=== PATIENT | male | born 1990 | race Caucasian/White ===

== ENCOUNTER 2019-01-20 21:30 | Emergency (ER) | payer BC, SELFPAY ==
[2019-01-19 07:15] VITALS: BMI 36.6
[2019-01-20 21:31] VITALS: BP 156/91; PULSE 88; RESP 15; TEMP 36.7; O2SAT 98; BMI 36.5
--- NOTE | 2019-01-20 22:58 | ED.DCSUM_ITS ---
- ER Visit Summary Date of Service: 01/20/19 Chief Complaint: Poison deborah History of Present Illness: The patient is a 28 M who developed poison deborah rash yesterday on his arms and face after working in his yard the day before. He says now clinic yesterday for poison deborah. He was given a Kenalog shot and sta rted on p.o. prednisone 40 mg daily. Patient presents back saying symptoms are not improving. He has intermittently taken Benadryl. Physical Examination: Vital signs gross unremarkable. Patient sitting upright in bed no acute distress. Heart is regular rate and rhythm. Lung sounds are clear. Abdomen is soft nontender. Skin examination was scattered erythematous lesions on the bilateral arms consistent with contact dermatitis. No sign of secondary bacterial infection. He has mild facial erythema and skin appears to be somewhat thickened. Test Results: [] Emergency Department Course and Treatment: Patient is instructed to take Benadryl every 6 hours. We will rewrite his prednisone taper to start at 60 mg instead of 40. He is given an extra 40 mill grams of prednisone at this time. Treatment Plan: [] Disposition: Discharge Impression: Poison deborah This note was generated with [employer] dictation software. It may contain incorrect words, spelling, and punctuation that were not noted in review of the chart prior to signing ED Disposition - Plan for ED Patient: Disposition: Home or Assisted Living Instructions: ED Dermatitis Poison Deborah Prescriptions: Prednisone 10 mg PO UD #30 tablet Referrals: Rivera Rueda MD [Primary Care Provider] - 3-5 Days if not improving Additional Instructions: Prednisone taper: 6 tabs (60mg) daily x 3 days 5 tabs (50mg) daily x 3 days 4 tabs (40mg) daily x 3 days 3 tabs (30mg) daily x 3 days 2 tabs (20mg) daily x 3 days 1 tab (10mg) daily x 3 days
[2019-01-20] MEDS: predniSONE 20 MG Tablet 40 MG PO (23:11)
[2019-01-20 23:13] VITALS: PULSE 81; RESP 20; O2SAT 98
--- NOTE | 2019-01-20 23:13 | ED.RN ---
THIS NURSE REVIEWED D/C INSTRUCTIONS WITH PT AND VISITOR. PT VERBALIZED UNDERSTANDING OF INSTRUCTIONS. PT DENIES FURTHER NEEDS OR QUESTIONS AT THIS TIME. PT AMBULATES FROM ROOM ON OWN WITHOUT ASSISTANCE FROM STAFF
== END 2019-01-20 23:14 | disposition home or self-care (01) ==
PROVIDERS: Emergency Provider Emergency Medicine; Family Provider Family Medicine; PCP Family Medicine
DX: L23.7 Allergic contact dermatitis due to plants, except food (principal)
CPT/HCPCS: 99283

== ENCOUNTER → 2021-04-26 13:17 | Outpatient (CLI) | payer BC, SELFPAY | PROVIDERS: PCP Family Medicine; Visit Provider Physician Assistant | DX: U07.1 COVID-19 (principal) | CPT/HCPCS: 87635; U0005; U0003 ==

== ENCOUNTER 2021-08-18 15:00 | Outpatient (CLI) | payer BC, SELFPAY ==
--- NOTE | 2021-08-18 13:15 | VAS_PTH ---
PATIENT: SEVERO SARAH LOC: [facility] U#:[id number] AGE/SX: 30/M ROOM: RE08/18/[address]: Dr. Kennedy Francisco MD : 1990 BED: DIS: 08/18/2021 SPEC #: [id number] RECD: 08/18/21 14:56 STATUS: RIO REMiguel #: [id number] CRUZ: 08/18/21 13:[address]: Kennedy Francisco DEPT: SURGICAL PATHOLOGY RECD BY: Geno Agee ENTERED: 08/21/21 13:08 SP TYPE: VAS OTHR DR: Dr. Rivera Rueda MD Tissues: A - Vas deferens, NOS B - Vas deferens, NOS Procedures: Surgery Specimen Level II HEADER OPERATION: Bilateral partial vasectomy PRE-OP DIAGNOSIS: Sterilization TISSUE SUBMITTED: A ? Left vas deferens, B ? Right vas deferens MICROSCOPIC DIAGNOSIS A. Left vas deferens, partial vasectomy: Completely transected segment of vas deferens, no pathologic diagnosis. B. Right vas deferens, partial vasectomy: Completely transected segment of vas deferens, no pathologic diagnosis. MENDOZA:rosas 08/22/2021 MICROSCOPIC DESCRIPTION Slides are reviewed. GROSS DESCRIPTION A - Received is one container designated left vas deferens. The specimen consists of a tubular segment of merrill soft tissue measuring 0.7 cm in length and 0.4 cm in diameter. The specimen is sectioned and submitted entirely in one cassette. B - Received is one container designated right vas deferens. The specimen consists of a tubular segment of merrill soft tissue measuring 0.6 cm in length and 0.4 cm in diameter. The specimen is sectioned and submitted entirely in one cassette. / MENDOZA:rosas 08/21/2021 TC:4 [facility]: [id number] x2
== END 2021-08-18 23:59 | disposition short-term general hospital (02) ==
PROVIDERS: PCP Family Medicine; Visit Provider Surgery
DX: Z30.2 Encounter for sterilization (principal)
CPT/HCPCS: 88302

== ENCOUNTER 2021-09-21 11:08 | Outpatient (CLI) | payer BC, SELFPAY ==
[2021-09-21 15:21] LABS: Semen Analysis Post Vas REVIEWED
== END 2021-09-21 23:59 | disposition home or self-care (01) ==
LOC: LABSPEC 11:09
PROVIDERS: Visit Provider Surgery
DX: Z30.2 Encounter for sterilization (principal)
CPT/HCPCS: 89321

== ENCOUNTER 2021-10-17 10:38 | Outpatient (CLI) | payer BC, SELFPAY ==
[2021-10-18 14:13] LABS: Semen Analysis Post Vas ABSENT
== END 2021-10-17 23:59 | disposition home or self-care (01) ==
LOC: LABSPEC 10:40
PROVIDERS: Visit Provider Surgery
DX: Z30.2 Encounter for sterilization (principal)
CPT/HCPCS: 89321

== ENCOUNTER 2021-10-25 16:48 | Emergency (ER) | payer BC, SELFPAY ==
[2021-10-25 16:49] VITALS: BP 149/95; PULSE 98; RESP 16; TEMP 36.1; O2SAT 100; BMI 34.7
--- NOTE | 2021-10-25 17:15 | US_ITS ---
STUDY: SCROTUM ULTRASOUND REASON FOR EXAM: Male, 31 years old. right testic pain TECHNIQUE: Ultrasound evaluation of the scrotum was performed with color Doppler and static winter-scale imaging. COMPARISON: None. FINDINGS: RIGHT TESTICLE INTRATESTICULAR: There is a normal size of the right testicle. The right testicle measures 4.9 x 3.6 cm. There is a homogenous echotexture. There is normal arterial and normal venous vascularity. There is no demonstrated right testicular mass or cyst. EXTRATESTICULAR: The epididymis is normal in size. The epididymis head measures 1.3 x 1.2 cm. There is normal vascularity of the epididymis. There is a well-defined cystic structure within the epididymis, without internal echoes, consistent with an epididymal cyst. This measures 5 x 6 monitor. There is a moderate size hydrocele. Hydroceles debris-filled. There is no demonstrated varicocele. There is no demonstrated extratesticular mass or cyst. LEFT TESTICLE INTRATESTICULAR: There is a normal size of the left testicle. The left testicle measures 5.1 x 3 cm. There is a homogenous echotexture. There is normal arterial and normal venous vascularity. There is no demonstrated left testicular mass or cyst. EXTRATESTICULAR: The epididymis is normal in size. The epididymis head measures 1.1 x 0.7 cm. There is normal vascularity of the epididymis. There is no demonstrated epididymal cystic structure. There is no demonstrated hydrocele. There is no demonstrated varicocele. There is no demonstrated extratesticular mass or cyst. US/Testicular with Arterial Flow IMPRESSION: Small left hydrocele. Moderate right debris-filled hydrocele. Small right epididymal cyst. There are no acute findings of the bilateral testicles without evidence for torsion. Electronically Signed: Bob Gaston MD at 19:07 EDT ,
--- NOTE | 2021-10-25 17:20 | CT_ITS ---
STUDY: CT Abdomen And Pelvis W/O Contrast Injection 10/25/2021 7:20 PM REASON FOR EXAM: Male, 31 years old. ABDOMINAL PAIN right flank pain TECHNIQUE: Transaxial images were obtained without oral contrast, and without intravenous contrast. Individualized dose optimization techniques were used for this CT. COMPARISON: None. FINDINGS: The visualized lung bases are unremarkable. The visualized portions of the heart are within normal limits. Normal liver. Normal gallbladder and extrahepatic biliary system. Normal spleen. Normal pancreas. Normal bilateral adrenal glands. No acute findings of the right kidney. No acute findings of the left kidney. Normal visualized stomach. Normal small intestine. Stool throughout the colon. The appendix is visualized and appears normal. There are no acute findings of the abdominal aorta. Normal inferior vena cava. Subcentimeter mesenteric lymph nodes. Normal urinary bladder. Normal visualized prostate gland.Bilateral testicular hydroceles. There is an umbilical hernia containing fat. Normal osseous structures. IMPRESSION: (NOT LISTED IN ORDER OF SIGNIFICANCE) Bilateral testicular hydroceles. Other findings as above. Electronically Signed: Bob Gaston MD at 19:22 EDT , CT/Abdomen/Pelvis without Cont
--- NOTE | 2021-10-25 17:20 | EX.ED.DYSGE1 ---
HPI History of Present Illness Chief Complaint: Flank Pain Informant: patient Onset/Context/Timing Onset: Hours (6-7) Context: Sudden Onset Timing: Continuous Quality: Ache Location: Low back, right testicle Current Severity: Severe Maximum Severity: Severe Worsened by: Palpating testicle Relieved by: Nothing. Tried ibuprofen. Associated Symptoms Associated Symptoms: No nausea, vomiting, urinary symptoms, fever Narrative Narrative: Patient with sudden onset pain that has been colicky in his right low back, lumbosacral area without any injury or pain with movement, followed by discomfort going into his flank and right testicle. He states the testicle pain did not start immediately, and it hurts a lot worse to push on or manipulate. [facility] Medical History (Updated 10/25/21 @ 20:[address] Harry Magallanes MD) Encounter for screening for COVID-19 Shoulder pain Home Medications acetaminophen-codeine 1 tab PO Q4H PRN #10 tab 10/25/21 [Rx Last Taken Unknown] aspirin [Baby Aspirin] 81 mg PO DAILY 10/25/21 [History Last Taken Unknown] doxycycline monohydrate 100 mg PO BID #14 capsule 10/25/21 [Rx Last Taken Unknown] Allergy/AdvReac Type Severity Reaction Status Date / Time poison mirna extract Allergy Unknown rash Verified 10/25/21 16:49 Family History Father Arthritis High cholesterol Mother Hypertension Grandfather Heart disease Surgical History History of shoulder surgery History of vasectomy (~08/2021) Hx of LASIK [place] teeth extracted Social History Smoking Status: Never smoker alcohol intake: current details: socially substance use type: does not use ROS ROS ED Constitutional Constitutional ED: Denies chills or fever(s) Eyes Eyes: Denies change in vision or diplopia ENT ENT ED: Denies rhinorrhea or sore throat Cardiovascular Cardiovascular: Denies chest pain or palpitations Respiratory/Chest Respiratory/Chest: Denies cough or dyspnea Gastrointestinal Gastrointestinal: Denies diarrhea, nausea or vomiting Genitourinary Genitourinary ED: Reports as per HPI, flank pain and scrotal pain; Denies dysuria, hematuria or penile discharge Musculoskeletal Musculoskeletal: Reports back pain; Denies neck pain Integumentary Denies abscess or rash Neurologic Neurologic: Denies headache(s), paresthesias or weakness Psychiatric Psychiatric: Denies anxiety or suicidal thoughts EXAM Physical Exam Const Vital Signs: 10/25/21 16:49 10/25/21 20:30 Temperature 97.0 F L Temperature Source Temporal Pulse Rate 98 90 Respiratory Rate 16 Blood Pressure 149/95 H 138/75 H Blood Pressure Mean 113 Pulse Ox 100 Oxygen Delivery Method Room Air Positive well nourished and well developed General Appearance ED: well developed and NAD HEENT Reports moist mucous membranes normocephalic and atraumatic Eyes PERRL and EOMs intact bilaterally Neck full ROM and supple Resp normal respiratory effort and clear to auscultation bilaterally Cardio regular rate, regular rhythm and no murmurs GI non-tender and non-distended Auscultation: normoactive bowel sounds Palpation: soft no CVA tenderness Narrative: Normal penis. Right testicle very tender, mild swelling, slightly drawn off without cremasteric reflex. No guarding or rebound. No blue dot sign of erythema. No palpable mass. No hernia examined while standing. Back/Spine no CVA tenderness General Back: other FROM Lumbar Spine / Lower Back: Negative for pain with ROM, lumbar spinal tenderness or paraspinal muscle spasm Extremity normal to inspection General Extremety ED: Negative for edema, pulses abnormal or tenderness General Extremity: Negative for edema or pulses abnormal Neuro oriented x3, CN's II-XII intact bilaterally and no sensory deficits noted Sensorium / Orientation: awake and alert Motor Exam: strength 5/5 throughout Skin no rashes or lesions noted and no wounds MDM MDM MDM Narrative Medical decision making narrative: Patient with an unusual constellation of symptoms, a tender painful right testicle but also pain into the flank and low back suggesting a stone. For these reasons not only did I do blood work and a urinalysis but also simultaneous ultrasound of the scrotum and a CT of the abdomen/pelvis. All in all it is fairly unremarkable showing bilateral hydroceles, the one on the right has debris in it, there is no increased vascularity in the epididymal, no abnormal or low vascularity/flow in the testicles, and no sign of a stone or any other acute abnormality in the abdomen/pelvis. I discussed with Dr. Khan and he states given with the exam, he would advise treating the patient for epididymitis and states he would be happy to follow-up with patient as an outpatient if needed. Discussed with the patient, he was given prescriptions for something for pain as well as doxycycline, he is and monogamous and I did doubt GC and chlamydia here. He is comfortable with that plan. Lab Data Attestation: I reviewed the patient's lab results. Labs: Laboratory Results - last 24 hr 10/25/21 10/25/21 10/25/21 17:24 17:25 17:25 WBC 14.7 H RBC 4.97 Hgb 15.1 Hct 42.9 MCV 86.3 MCH 30.4 MCHC 35.2 RDW Std Deviation 39.3 RDW Coeff of German 12.4 Plt Count 328 MPV 8.9 Immature Gran % (Auto) 0.400 Neut % (Auto) 80.4 H Lymph % (Auto) 10.8 L [place] % (Auto) 7.6 Eos % (Auto) 0.5 Baso % (Auto) 0.3 Absolute Neuts (auto) 11.8 H Absolute Lymphs (auto) 1.59 Nucleated RBC % 0 Sodium 138 Potassium 4.1 Chloride 106 Carbon Dioxide 27.0 Anion Gap 5 BUN 15 Creatinine 1.12 Estim Creat Clear Calc 115.17 Est GFR (MDRD) Af Amer 97 Est GFR (MDRD) Non-Af 80 BUN/Creatinine Ratio 13.4 Glucose 113 H Calcium 9.1 Urine Color Yellow Urine Clarity Clear Urine pH 8.0 Ur Specific [place] 1.015 Urine Protein Negative Urine Glucose (UA) Normal Urine Ketones Negative Urine Occult Blood Negative Urine Nitrite Negative Urine Bilirubin Negative Urine Urobilinogen Normal Ur Leukocyte Esterase Negative Urine RBC 0 SEEN Urine WBC 0 SEEN Ur Squamous Epith Cells 0 SEEN Urine Bacteria 0 SEEN Urine Mucus 0 SEEN Radiography Diagnostic Testing: Clinical Impression(s) from Imaging Studies Testicular Ultrasound 10/25/21 17:15 IMPRESSION: Small left hydrocele. Moderate right debris-filled hydrocele. Small right epididymal cyst. There are no acute findings of the bilateral testicles without evidence for torsion. Electronically Signed: Bob Gaston MD at 19:07 EDT Reading Location ID and State: [facility] / [place] , Service support , Abdomen/Pelvis CT 10/25/21 17:20 Discharge Plan Triage Chief Complaint: Flank Pain Other Complaint: Back ED Provider: Harry Magallanes Dx/Rx/DC Orders Clinical Impression: Epididymitis, right, Hydrocele, bilateral, Acute right flank pain Instructions: ED Epididymitis, ED Hydrocele, Type Not Specified Prescriptions: New doxycycline monohydrate 100 MG capsule 100 mg PO BID Qty: 14 RF: 0 acetaminophen-codeine 300-30 mg tablet 1 tab PO Q4H PRN (Reason: pain) Qty: 10 RF: 0 No Action aspirin [Baby Aspirin] 81 mg Tablet,Chewable 81 mg PO DAILY RF: 0 Primary Care Provider: Rivera Rueda Referrals: Raad Khan MD [STAFF PHYSICIAN] - 1 Week if not improving Rivera Rueda MD [Primary Care Provider] - Disposition Disposition: Home, Self Care Discharge Date/Time: 10/25/21 20:31
[2021-10-25] MEDS: HYDROcodone Bitartrate/Apap 5/325 Tablet PO (17:26)
[2021-10-25] MEDS: Ketorolac 30 MG/ML Syringe IV (17:30)
[2021-10-25 17:36] LABS: Bacteria 0 SEEN /hpf (None Seen); Mucous, Urine 0 SEEN /hpf (<or=2+); Red Blood Cells-Urine 0 SEEN /hpf (0-5); Squamous Epithelial Cells - UA 0 SEEN /hpf (0-5); White Blood Cells 0 SEEN /hpf (0-5)
[2021-10-25 17:40] LABS: Color, Urine Yellow (Yellow); Glucose, Dipstick Normal (Normal); Ketone-Dipstick Negative (Negative); Leukocyte Esterase-Dipstick Negative /ul (Negative); Nitrite-Dipstick Negative (Negative); Occult Blood-Urine Negative /ul (Negative); Protein-Dipstick Negative (Negative); Specific Gravity, Urine 1.015 (1.002-1.030); Urine Bilirubin Dipstick Negative (Negative); Urine Clarity Clear (Clear); Urine Urobilinogen Normal (Normal)
[2021-10-25 17:42] LABS: Absolute Lymphocyte Count 1.59 X10^3/uL (0.83-4.51); Absolute Neutrophil Count 11.8 X10^3/uL (2.0-7.7); Basophil# 0.05 X10^3/uL; Basophil% 0.3 % (0-1); Eosinophil# 0.08 X10^3/uL; Eosinophils% 0.5 % (0-5); Hematocrit 42.9 % (40-54); Hemoglobin 15.1 g/dL (13.0-16.5); Lymphocyte # 1.59 X10^3/ul (0.83-4.51); Lymphocyte % 10.8 % (19-41); Mean Corp Hgb Conc 35.2 g/dL (32-36); Mean Corpuscular Hgb 30.4 pg (27.0-32.0); Mean Corpuscular Volume 86.3 fL (80-94); Mean Platelet Vol. 8.9 fl (6.2-12.0); Monocyte# 1.12 X10^3/uL; Monocyte% 7.6 % (0-10); NRBC Flagged by Analyzer 0 % (0-5); Neutrophil # 11.78 X10^3/uL (2.7-7.7); Neutrophil % 80.4 % (47-70); Platelet Count 328 K/mm3 (150-450); RBC Distribution Width CV 12.4 % (11.6-14.6); RBC Distribution Width SD 39.3 fl (35.1-43.9); Red Blood Count 4.97 M/mm3 (4.6-6.2); White Blood Count 14.7 K/mm3 (4.4-11.0)
[2021-10-25 18:02] LABS: Anion Gap 5 (5-15); BUN 15 mg/dL (7-18); BUN/Creat Ratio 13.4 RATIO (10-20); Calcium,Total 9.1 mg/dL (8.5-10.1); Chloride 106 mmol/L (98-107); Creatinine, Serum 1.12 mg/dL (0.70-1.30); EST Glomerular Filtration Rate 80 mL/min (>60); Est Glom Filt Rate - Afr Amer 97 mL/min (>60); Estimated Creatinine Clearance 115.17 ml/min; Glucose 113 mg/dL (74-106); Potassium 4.1 mmol/L (3.5-5.1); Sodium Level 138 mmol/L (136-145)
[2021-10-25] MEDS: Doxycycline 100 MG CAPSULE PO (20:26)
[2021-10-25 20:30] VITALS: BP 138/75; PULSE 90
== END 2021-10-25 20:31 | disposition home or self-care (01) ==
PROVIDERS: Emergency Provider Emergency Medicine; PCP Family Medicine; Visit Provider Emergency Medicine
DX: N45.1 Epididymitis (principal); N43.3 Hydrocele, unspecified; N50.811 Right testicular pain; Z79.82 Long term (current) use of aspirin
CPT/HCPCS: 74176; 76870; 80048; 81001; 85025; 93976; 96374; 99284; A4216

== ENCOUNTER → 2024-06-08 | Outpatient (CLI) | payer OTHER, SELFPAY ==
[2024-06-08 17:43] LABS: Follicle Stimulating Hormone 3.9 mIU/mL; Luteinizing Hormone 4.8 mIU/mL
--- OUTSIDE RECORDS SUMMARY | 2024-06-08 19:58 | XMS RPT_ITS | CCD ---
Author Organization [facility] Care Team Providers Care Highballer Name Role Phone Lilia Rueda Unavailable Unavailable Stencel, Lilia Unavailable Unavailable Wood, Lisa Rees Unavailable Unavailable Stencel, Lilia Unavailable Unavailable Stencel, Lilia Unavailable Unavailable Stencel, Lilia Unavailable Unavailable Stencel, Lilia Unavailable Unavailable Stencel, Lilia Unavailable Unavailable Stencel, Lilia Unavailable Unavailable Stencel, Lilia Unavailable Unavailable Stencel, Lilia Unavailable Robert Elmore MD MICHAEL DAVID Referring Briana RUEDA, MD LILIA RASMUSSEN Attending MD LILIA Newman Primary Care Briana Elmore, Ms. Robert Angeles Attending Briana Rueda, Dr. Lilia Rasmussen Primary Care Lilia Nation MD Primary Care Provider [phone] LILIA RUEDA Attending LILIA Little Primary Care LILIA Little Primary Care Unavailable Allergies Allergy Classification Reported Allergen(s) Allergy Type Date of Onset Reaction(s) Facility (1 source) No Known Medication Allergies; Translations: [No Known Medication Allergies] Propensity to adverse reactions to drug (disorder) [facility] Repository Medications Current Medications Medication Drug Class(es) Dates Sig (Normalized) Sig (Original) azithromycin 250 mg oral tablet (1 source) Macrolide Antimicrobial Start: 10-10-2022 take 2 tablets by mouth once, then take 1 tablet by mouth once daily azithromycin 250 mg oral tablet ; Take 2 tabs (500mg) x 1 days, then 1 tab (250mg) once daily x 4 days Quantity: 6 Refills: 0 Ordered: 10-Oct-2022 Robert Elmore Start: 10-Oct-2022 Generic Substitution Allowed Comments: Do not take dairy products, antacids, or iron preparations within one hour of this medication.Finish all this medication unless otherwise directed by prescriber. Comment on above: Do not take dairy pr oducts, antacids, or iron preparations within one hour of this medication.Finish all this medication unless otherwise directed by prescriber. 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 Other upper respiratory disease (2 sources) Pain in throat 10-10-2022 Episodic Comment on above: SORE THROAT Other upper respiratory infections (2 sources) Acute pharyngitis, unspecified; Translations: [Acute pharyngitis, unspecified] Onset: 10-10-2022 Episodic Unclassified (1 source) Contact with and (suspected) exposure to COVID-19; Translations: [Contact with and (suspected) exposure to COVID-19] Onset: 10-10-2022 Results Test Name Value Interpretation Reference Range Facility CBC panel Auto (Bld)on 05-12 Erythrocyte distribution width (RBC) [Ratio] 12.5 % 11.5 - 14.5 % [facility] Hematocrit (Bld) [Volume fraction] 43.0 % 41.0 - 52.0 % [facility] Hemoglobin (Bld) [Mass/Vol] 14.8 g/dL 13.5 - 17.5 g/dL [facility] Interpretation and review of laboratory results Normal [facility] MCH (RBC) [Entitic mass] 30.4 pg 26.0 - 34.0 pg [facility] MCHC (RBC) [Mass/Vol] 34.4 g/dL 32.0 - 36.0 g/dL [facility] MCV (RBC) [Entitic vol] 88 fL 80 - 100 fL [facility] Nucleated RBC/100 WBC (Bld) [Ratio] 0.0 % [facility] Platelets (Bld) [#/Vol] 280 10*3/uL [facility] RBC (Bld) [#/Vol] 4.87 10*6/uL [facility] WBC (Bld) [#/Vol] 5.4 10*3/uL [facility] Erythrocyte distribution width (RBC) [Ratio] 12.5 % Normal 11.5-14.5 [facility] Comment on above: Performed By: #### 5 8410-2 #### MANISH MARTIN ([id number]) [facility] ([facility]) [address] [place] [address] 88586 Hematocrit (Bld) [Volume fraction] 43.0 % Normal 41.0-52.0 [facility] Comment on above: Performed By: #### 5 8410-2 #### MANISH MARTIN ([id number]) [facility] ([facility]) [address] [place] [address] 47624 Hemoglobin (Bld) [Mass/Vol] 14.8 g/dL Normal 13.5-17.5 [facility] Comment on above: Performed By: #### 5 8410-2 #### MANISH MARTIN ([id number]) [facility] ([facility]) [address] [place] [address] 02423 MCH (RBC) [Entitic mass] 30.4 pg Normal 26.0-34.0 [facility] Comment on above: Performed By: #### 5 8410-2 #### MANISH MARTIN ([id number]) [facility] ([facility]) [address] [place] [address] 86744 MCHC (RBC) [Mass/Vol] 34.4 g/dL Normal 32.0-36.0 [facility] Comment on above: Performed By: #### 5 8410-2 #### MANISH MARTIN ([id number]) [facility] ([facility]) [address] [place] [address] 76182 MCV (RBC) [Entitic vol] 88 fL Normal 80-100 [facility] Comment on above: Performed By: #### 5 8410-2 #### MANISH MARTIN ([id number]) [facility] ([facility]) [address] [place] [address] 24568 Nucleated RBC/100 WBC (Bld) [Ratio] 0.0 /100 WBCs Normal 0.0-0.0 [facility] Comment on above: Performed By: #### 5 8410-2 #### MANISH MARTIN ([id number]) [facility] ([facility]) [facility] [place] [address] Platelets (Bld) [#/Vol] 280 x10*3/uL Normal 150-450 [facility] Comment on above: Performed By: #### 5 8410-2 #### MANISH MARTIN ([id number]) [facility] ([facility]) [address] [place] [address] 76889 RBC (Bld) [#/Vol] 4.87 x10*6/uL Normal 4.50-5.90 [facility] Comment on above: Performed By: #### 5 8410-2 #### MANISH MARTIN ([id number]) [facility] ([facility]) [address] [place] [address] 23242 WBC (Bld) [#/Vol] 5.4 x10*3/uL Normal 4.4-11.[address] [facility] Comment on above: Performed By: #### 5 8410-2 #### MANISH MARTIN ([id number]) [facility] ([facility]) [address] [place] [address] 16582 Comprehensive metabolic 2000 panelon 05-12-2024 Albumin BCP dye [Mass/Vol] 4.6 g/dL 3.4 - 5.0 g/dL [facility] ALP [Catalytic activity/Vol] 63 U/L 33 - 120 U/L [facility] ALT With P-5'-P [Catalytic activity/Vol] 46 U/L 10 - 52 U/L [facility] Comment on above: Patients treated wit h Sulfasalazine may generate falsely decreased results for ALT. Anion gap [Moles/Vol] 11 mmol/L 10 - 20 mmol/L [facility] AST With P-5'-P [Catalytic activity/Vol] 21 U/L 9 - 39 U/L [facility] Bilirubin [Mass/Vol] 0.5 mg/dL 0.0 - 1.2 mg/dL [facility] Calcium [Mass/Vol] 9.1 mg/dL 8.6 - 10.3 mg/dL [facility] Chloride [Moles/Vol] 105 mmol/L 98 - 107 mmol/L [facility] CO2 [Moles/Vol] 25 mmol/L 21 - 32 mmol/L [facility] Creatinine [Mass/Vol] 0.85 mg/dL 0.50 - 1.30 mg/dL [facility] eGFR - PINF [facility] Comment on above: Calculations of clarence mated GFR are performed using the 2020 CKD-EPI Study Refit equation without the race variable for the IDMS-Traceable creatinine methods. https://jasn.asnjournals.org/content/early//ASN.1411525931 Glucose [Mass/Vol] 89 mg/dL 74 - 99 mg/dL [facility] Interpretation and review of laboratory results Normal [facility] Potassium [Moles/Vol] 4.3 mmol/L 3.5 - 5.3 mmol/L [facility] Protein [Mass/Vol] 7.3 g/dL 6.4 - 8.2 g/dL [facility] Sodium [Moles/Vol] 137 mmol/L 136 - 145 mmol/L [facility] Urea nitrogen [Mass/Vol] 13 mg/dL 6 - 23 mg/dL [facility] Albumin BCP dye [Mass/Vol] 4.6 g/dL Normal 3.4-5.0 [facility] Comment on above: Performed By: #### 2 4323-8 #### MANISH MRATIN ([id number]) [facility] ([facility]) [address] [place] [address] 24221 ALP [Catalytic activity/Vol] 63 U/L Normal 33-120 [facility] Comment on above: Performed By: #### 2 4323-8 #### MANISH MARTIN ([id number]) [facility] ([facility]) [address] [place] [address] 04914 ALT With P-5'-P [Catalytic activity/Vol] 46 U/L Normal 10-52 [facility] Comment on above: Result Comment: Isa ents treated with Sulfasalazine may generate falsely decreased results for ALT. Performed By: #### 2 4323-8 #### MANISH MARTIN ([id number]) [facility] ([facility]) [address] [place] [address] 57720 Anion gap [Moles/Vol] 11 mmol/L Normal 10-20 [facility] Comment on above: Performed By: #### 2 4323-8 #### MANISH MARTIN ([id number]) [facility] ([facility]) [address] [place] [address] 57580 AST With P-5'-P [Catalytic activity/Vol] 21 U/L Normal 9-39 [facility] Comment on above: Performed By: #### 2 4323-8 #### MANISH MARTIN ([id number]) [facility] ([facility]) [address] [place] [address] 28824 Bilirubin [Mass/Vol] 0.5 mg/dL Normal 0.0-1.2 [facility] Comment on above: Performed By: #### 2 4323-8 #### MANISH MARTIN ([id number]) [facility] ([facility]) [address] [place] [address] 23732 Calcium [Mass/Vol] 9.1 mg/dL Normal 8.6-10.3 [facility] Comment on above: Performed By: #### 2 4323-8 #### MANISH MARTIN ([id number]) [facility] ([facility]) [address] [place] [address] 24458 Chloride [Moles/Vol] 105 mmol/L Normal 98-107 [facility] Comment on above: Performed By: #### 2 4323-8 #### MANISH MARTIN ([id number]) [facility] ([facility]) [address] [place] [address] 97640 CO2 [Moles/Vol] 25 mmol/L Normal 21-32 [facility] Comment on above: Performed By: #### 2 4323-8 #### MANISH MARTIN ([id number]) [facility] ([facility]) [address] [place] [address] 14896 Creatinine [Mass/Vol] 0.85 mg/dL Normal 0.50-1.30 [facility] Comment on above: Performed By: #### 2 4323-8 #### MANISH MARTIN ([id number]) [facility] ([facility]) [address] [place] [address] 59639 GFR/1.73 sq M.predicted MDRD (S/P/Bld) [Vol rate/Area] mL/min/{1.73_m2} Normal >60 [facility] Comment on above: Result Comment: Calc ulations of estimated GFR are performed using the 2020 CKD-EPI Study Refit equation without the race variable for the IDMS-Traceable creatinine methods. https://jasn.asnjournals.org/content/early/ASN.2176344963 Performed By: #### 2 432-8 #### MANISH MARTIN ([id number]) [facility] ([facility]) [address] [place] [address] 89232 Glucose [Mass/Vol] 89 mg/dL Normal 74-99 [facility] Comment on above: Performed By: #### 2 432-8 #### MANISH MARTIN ([id number]) [facility] ([facility]) [address] [place] [address] 11249 Potassium [Moles/Vol] 4.3 mmol/L Normal 3.5-5.3 [facility] Comment on above: Performed By: #### 2 4323-8 #### MANISH MARTIN ([id number]) [facility] ([facility]) [address] [place] [address] 03461 Protein [Mass/Vol] 7.3 g/dL Normal 6.4-8.2 [facility] Comment on above: Performed By: #### 2 4323-8 #### MANISH MARTIN ([id number]) [facility] ([facility]) [address] [place] [address] 68358 Sodium [Moles/Vol] 137 mmol/L Normal 136-145 [facility] Comment on above: Performed By: #### 2 4323-8 #### MANISH MARTIN ([id number]) [facility] ([facility]) [address] [place] [address] Urea nitrogen [Mass/Vol] 13 mg/dL Normal 6-23 [facility] Comment on above: Performed By: #### 2 4323-8 #### HAMMOND MARIO ([id number]) [facility] ([facility]) [address] [place] [id number] Lipid 1996 panelon 4 Cholesterol [Mass/Vol] 175 mg/dL 0 - 199 mg/dL [facility] Comment on above: Age Desirable Borderline High High 0-19 Y 0 - 169 170 - 199 >/= 200 20-24 Y 0 - 189 190 - 224 >/= 225 >24 Y 0 - 199 200 - 239 >/= 240 All ranges are based on fasting samples. Specific therapeutic targets will vary based on patient-specific cardiac risk. Pediatric guidelines reference:Pediatrics 2011, 128(S5).Adult guidelines reference: NCEP ATPIII Guidelines,MEAGHAN 2001, 258:2486-97 Venipuncture immediately after or during the administration of Metamizole may lead to falsely low results. Testing should be performed immediately prior to Metamizole dosing. Cholesterol in HDL [Mass/Vol] 54.0 mg/dL [facility] Comment on above: Age Very Low Low Normal High 0-19 Y < 35 < 40 40-45 ---- 20-24 Y ---- < 40 >45 ---- >24 Y ---- < 40 40-60 >60 Cholesterol in LDL [Mass/Vol] 100 mg/dL High NINF - 99 mg/dL [facility] Comment on above: Near Borderline AGE Desirable Optimal High High Very High 0-19 Y 0 - 109 --- 110-129 >/= 130 ---- 20-24 Y 0 - 119 --- 120-159 >/= 160 ---- >24 Y 0 - 99 100-129 130-159 160-189 >/=190 Cholesterol in VLDL [Mass/Vol] 21 mg/dL 0 - 40 mg/dL [facility] Cholesterol.total /Cholesterol in HDL [Mass ratio] 3.2 {ratio} [facility] Comment on above: Ref Values Desirable < 3.4 High Risk > 5.0 Interpretation and review of laboratory results Abnormal [facility] Non HDL Cholesterol 121 mg/dL 0 - 149 mg/dL [facility] Comment on above: Age Desirable Borderline High High Very High 0-19 Y 0 - 119 120 - 144 >/= 145 >/= 160 20-24 Y 0 - 149 150 - 189 >/= 190 ---- >24 Y 30 mg/dL above LDL Cholesterol goal Triglyceride [Mass/Vol] 106 mg/dL 0 - 149 mg/dL [facility] Comment on above: Age Desirable Borderline High High Very High 0 D-90 D 19 - 174 ---- ---- ---- 91 D- 9 Y 0 - 74 75 - 99 >/= 100 ---- 10-19 Y 0 - 89 90 - 129 >/= 130 ---- 20-24 Y 0 - 114 115 - 149 >/= 150 ---- >24 Y 0 - 149 150 - 199 200- 499 >/= 500 Venipuncture immediately after or during the administration of Metamizole may lead to falsely low results. Testing should be performed immediately prior to Metamizole dosing. Cholesterol [Mass/Vol] 175 mg/dL Normal 0-199 [facility] Comment on above: Result Comment: Age Desirable Borderline High High 0-19 Y 0 - 169 170 - 199 >/= 200 20-24 Y 0 - 189 190 - 224 >/= 225 >24 Y 0 - 199 200 - 239 >/= 240 All ranges are based on fasting samples. Specific therapeutic targets will vary based on patient-specific cardiac risk. Pediatric guidelines reference:Pediatrics 2011, 128(S5).Adult guidelines reference: NCEP ATPIII Guidelines,MEAGHAN 2001, 258:2486-97 Venipuncture immediately after or during the administration of Metamizole may lead to falsely low results. Testing should be performed immediately prior to Metamizole dosing. Performed By: #### 2 4331-1 #### HAMMOND MARIO ([id number]) [facility] ([facility]) [address] [place] [address] Cholesterol in HDL [Mass/Vol] 54.0 mg/dL Normal [facility] Comment on above: Result Comment: Age Very Low Low Normal High 0-19 Y < 35 < 40 40-45 ---- 20-24 Y ---- < 40 >45 ---- >24 Y ---- < 40 40-60 >60 Performed By: #### 2 4331-1 #### MANISH MARTIN ([id number]) [facility] ([facility]) [address] [place] [address] 58348 Cholesterol in LDL [Mass/Vol] 100 mg/dL High <=99 [facility] Comment on above: Result Comment: Near Borderline AGE Desirable Optimal High High Very High 0-19 Y 0 - 109 --- 110-129 >/= 130 ---- 20-24 Y 0 - 119 --- 120-159 >/= 160 ---- >24 Y 0 - 99 100-129 130-159 160-189 >/=190 Performed By: #### 2 4331-1 #### MANISH MARTIN ([id number]) [facility] ([facility]) [address] [place] [address] 99433 Cholesterol in VLDL [Mass/Vol] 21 mg/dL Normal 0-40 [facility] Comment on above: Performed By: #### 2 4331-1 #### MANISH MARTIN ([id number]) [facility] ([facility]) [address] [place] [address] 29115 CHOLESTEROL/HDL RATIO 3.2 Normal [facility] Comment on above: Result Comment: Ref Values Desirable < 3.4 High Risk > 5.0 Performed By: #### 2 4331-1 #### MANISH MARTIN ([id number]) [facility] ([facility]) [address] [place] [address] 86887 NON HDL CHOLESTEROL 121 mg/dL Normal 0-149 [facility] Comment on above: Result Comment: Age Desirable Borderline High High Very High 0-19 Y 0 - 119 120 - 144 >/= 145 >/= 160 20-24 Y 0 - 149 150 - 189 >/= 190 ---- >24 Y 30 mg/dL above LDL Cholesterol goal Performed By: #### 2 4331-1 #### MANISH MARTIN ([id number]) [facility] ([facility]) [facility] [place] [address] Triglyceride [Mass/Vol] 106 mg/dL Normal 0-149 [facility] Comment on above: Result Comment: Age Desirable Borderline High High Very High 0 D-90 D 19 - 174 ---- ---- ---- 91 D- 9 Y 0 - 74 75 - 99 >/= 100 ---- 10-19 Y 0 - 89 90 - 129 >/= 130 ---- 20-24 Y 0 - 114 115 - 149 >/= 150 ---- >24 Y 0 - 149 150 - 199 200- 499 >/= 500 Venipuncture immediately after or during the administration of Metamizole may lead to falsely low results. Testing should be performed immediately prior to Metamizole dosing. Performed By: #### 2 4331-1 #### HAMMOND MARIO ([id number]) [facility] ([facility]) [address] [place] [address] No Panel Informationon 05-12 [facility] TSH Qnon 05-12-2024 Interpretation and review of laboratory results Normal [facility] TSH testing is perfo rmed using different testing methodology at [facility] than at other [facility] [place] [facility]. Direct result comparisons should only be made within the same method. [facility] Testosteroneon 05-12-2024 Testosterone [Mass/Vol] 302 ng/dL 240 - 1000 ng/dL [facility] Testosterone [Mass/Vol] 302 ng/dL Normal 240-1000 [facility] Comment on above: Order Comment: Nandr olone decanoate, 11 Beta- hydroxytestosterone, androstenedione, testosterone propionate and 64-egzy-lmrtwzvokaak strongly cross react with this test method. Biotin interference may cause falsely elevated results. Patients taking a Biotin dose of up to 5 mg/day should refrain from taking Biotin for 24 hours before sample collection. Providers may contact their local laboratory for further information. Performed By: #### 2 986-8 #### JOELNE Rees ([id number]) [facility] ([facility]) [id number] [place] [address] 24476 Testosterone [Mass/Vol]on Interpretation and review of laboratory results Normal [facility] Nandrolone decanoate , 11 Beta-hydroxytestosterone, androstenedione, testosterone propionate and 47-pmoa-tsovebjhyuga strongly cross react with this test method. Biotin interference may cause falsely elevated results. Patients taking a Biotin dose of up to 5 mg/day should refrain from taking Biotin for 24 hours before sample collection. Providers may contact their local laboratory for further information. [facility] Thyroid Stimulating Hormoneo n 05-12-2024 TSH Qn 1.07 m[IU]/L [facility] Thyrotropinon 05-12-2024 TSH Qn 1.07 m[IU]/L Normal 0.44-3.98 [facility] Comment on above: Order Comment: TSH t esting is performed using different testing methodology at [facility] than at other [facility] [place] [facility]. Direct result comparisons should only be made within the same method. Performed By: #### 3 016-3 #### HAMMOND MARIO ([id number]) [facility] ([facility]) [address] [place] [address] Covid 19 Resultson 3 SARS-CoV-2 (COVID-19) RNA KRISTEN+probe Ql (Unsp spec) NEGATIVE COVID-19 Test Coronaviruses are common world-wide and are the cause of many common colds. SARS-COV2 is a new coronavirus that began circulating worldwide in 2019 so we are calling it COVID-19. It has been estimated that four out of five patients with COVID-19 will recover at home without the need for medical attention. Symptoms of COVID-19 may include cough, fever, shortness of breath, loss of taste or smell and other flu-like symptoms including chills, sore muscles, sore throat, and headache. Severe illness is more common in older people and people with other health problems such as high blood pressure, obesity, and immune system problems. If the test is positive, you have COVID-19. You will be contacted by the ordering physicians office and instructed to remain on home isolation, in accordance with CDC guidelines. You may also be contacted by the [facility] to see if any of your close contacts may have been exposed to the virus and need to quarantine. If the test is negative, you likely do not have COVID-19 at this time, but you still may have a different illness that can spread to other people (like Influenza, or the Flu) and could still be at risk for getting COVID-19. We recommend that you stay away from other people to limit the spread of illness until your symptoms are improving and you are fever-free for 24 hours without the use of fever lowering medications such as acetaminophen or ibuprofen. No test is 100% accurate so if you are still concerned you may have COVID-19, talk to your doctor about the need to continue to stay away from others. Medicines Unless your provider told you not to use the following: Acetaminophen (Tylenol and others) is generally safe. Anti-inflammatory medications, such as Ibuprofen (Advil or Motrin) or Naproxen (Aleve) can also be used. Ljto-ojz-zfldtwg cough and cold medicines can be used according to the instructions on the package. Some wulg-snm-jnsrolm medicines also contain acetaminophen. Make sure you are not taking more than your recommended dose. For those not hospitalized, there is no specific treatment available for this illness. Antibiotics do not treat Coronaviruses. Follow-Up Follow up with your doctor by scheduling a virtual visit or consider follow-up at one of our urgent care fever clinics. If you are having difficulty breathing, or are very weak and having difficulty standing, this is a medical emergency. Call 911 or have someone take you to the nearest emergency room immediately. If possible, wear a facemask. Additional guidance from the CDC for patients who tested POSITIVE for COVID-19 How to isolate: Isolate yourself in a specific room at home and limit your contact with others. Use a separate bathroom from other members of the household, when possible. Leave home only to get essential medical care. Do not go to work, school or public areas. Avoid using public transportation, ride-sharing, or taxis. Restrict contact with pets and other animals. If you must care for your pet or be around animals while you are sick, wash your hands before and after your interaction and wear a facemask. Make sure that shared spaces in the home have good airflow, such as by an air conditioner or an opened window, weather permitting. Personal Hygiene Procedures: Wear a face mask when in the same room as other people or pets. If a face mask interferes with your breathing, others should wear a mask when sharing space with you. Frequent hand-washing: wash your hands with soap and water for at least 20 seconds. If soap and water are not available, use alcohol-based hand veneer jointer offbearer. Avoid touching your eyes, nose, and mouth with unwashed hands. Household Hygiene Procedures: Avoid sharing personal household items such as dishes, glassware, cups, eating utensils, towels or bedding with other people or pets in your home. After use, these items should be washed with soap and hot water. Disinfect all high-touch surfaces every day with antibacterial cleaning solutions such as Lysol wipes, bleach, cleansers, etc. High-touch surfaces include tabletops, doorknobs, bathroom fixtures, toilets, phones, keyboards, tablets and bedside tables. Immediately clean any surfaces that may have blood, poop or body fluids on them, using antibacterial cleaning solutions such as Lysol wipes, bleach, cleansers, etc. If clothing or bedding come into contact with blood, poop or body fluids, they should be washed immediately. Follow the directions on the laundry detergent and clothing labels but hot water is recommended when possible. Stopping home isolation precautions: If possible, consult your doctor before stopping home isolation precautions. According to the CDC, you can discontinue home isolation precautions when you have met both of these criteria: Your fever and respiratory symptoms have been gone for 24 julio (more content not included)... Normal [facility] GROUP A STREP,PCRon 10-11-19 23 GROUP A STREP,PCR Detected Abnormal Not Detected [facility], [place], operated by [facility] Comment on above: Order Comment: GAPCR CALLED TO ROBERT ELMORE, 10/11/2022 09:57 Result Comment: This test and its performance have been Validated by [facility] using analyte specific reagents (ASR). It has not been cleared or approved by the U.S. Food and Drug Administration. The FDA has determined that such clearance or approval is not necessary. GAPCR CALLED TO ROBERT ELMORE, 10/11/2022 09:57 Performed By: #### G APC1 #### [facility] [id number] [place] [address] Lab Specimen Source Throat Normal [facility] Comment on above: Order Comment: GAPCR CALLED TO ROBERT ELMORE, 10/11/2022 09:57 Performed By: #### G APC1 #### [facility] [address] [place] [address] INFLUENZA A/B, COVID 2019 PC R,SYMPTOMATICon 03-01-2023 INFLUENZA A, PCR Not detected Normal Not Detected [facility] Comment on above: Result Comment: Resp iratory virus testing is performed routinely by PCR for Influenza A/B and RSV. Not Detected results do not preclude Influenza A/B or RSV infections since the adequacy of sample collection or low viral burden may impact the clinical sensitivity of this test method. Performed By: #### C OINP #### [place] [address] INFLUENZA B, PCR Not detected Normal Not Detected [facility] Comment on above: Result Comment: Resp iratory virus testing is performed routinely by PCR for Influenza A/B and RSV. Not Detected results do not preclude Influenza A/B or RSV infections since the adequacy of sample collection or low viral burden may impact the clinical sensitivity of this test method. Performed By: #### C OINP #### [place] [address] SARS-CoV-2 (COVID-19) RNA KRISTEN+probe Ql (Unsp spec) Not detected Normal Not Detected [facility] Comment on above: Result Comment: . This test has received FDA Emergency Use Authorization (EUA) and has been verified by [facility]. This test is only authorized for the duration of time that circumstances exist to justify the authorization of the emergency use of in vitro diagnostic tests for the detection of SARS-CoV-2 virus and/or diagnosis of COVID-19 infection under section 564(b)(1) of the Act, 21 U.S.C. 360bbb-3(b)(1), unless the authorization is terminated or revoked sooner. [facility] is certified under CLIA-88 as qualified to perform high complexity testing. Testing is performed in the [facility] laboratory located at [address] [place] [address]. SARS-CoV-2/Flu/RSV Multiplex Test: Fact sheet for providers: https://www.fda.gov/media/531909/download Fact sheet for patients: https://www.fda.gov/media/619239/download Performed By: #### C OINP #### [place] [id number] Lab Specimen Source Nasal, Nasopharyngeal Normal [facility] Comment on above: Performed By: #### C OINP #### [address] [address] Provider Note - ED v3on 03-0 Provider Note - ED v3 Provider Note: Chart Review: ED NOTES ED NOTES: Presents for evaluation of throat swelling and pain. 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 Pain is exacerbated by oral intake. Pt did not attempt any OTC meds or conservative measures. No fever, chills, vomiting, URI symptoms, or other constitutional S/S. No known ill contacts. No other complaints. HISTORY OF PRESENTING ILLNESS DAJUAN is a 32 year old Male and was seen by me at 10-Oct-2022 09:12. Triage Information: Most recent Vital Sign Value Date PAST MEDICAL HISTORY ALLERGIES/INTOLERANCES: No Known Allergies HEALTH HISTORY: No documented data. OUTPATIENT MEDICATIONS: Home Medications Review Status for Reconciliation: Complete Med Status: Patient Currently Takes Medications Drug Name: azithromycin 250 mg oral tablet Instructions: Take 2 tabs (500mg) x 1 days, then 1 tab (250mg) once daily x 4 days SIGNIFICANT EVENTS: No documented data. REVIEW OF SYSTEMS All other systems reviewed and are negative REVIEW OF SYSTEMS: Comments See HPI PHYSICAL EXAM CONSTITUTIONAL: Mildly ill appearing but well nourished, awake, alert, oriented to person, place, time/situation and in no apparent distress. HENMT: Airway patent, ears with clear tympanic membranes bilaterally. Nasal mucosa clear. Mouth with normal mucosa. Throat has posterior OP erythema, 2+ tonsillar edema and oropharyngeal exudates bilaterally and uvula is midline. Face with anterior cervical lymphadenopathy bilaterally. EYES: Clear bilaterally, pupils equal, round and reactive to light. CARDIOVASCULAR: Normal rate, regular rhythm. Heart sounds S1, S2. No murmurs, rubs or gallops. PMI non-displaced. RESPIRATORY: Breath sounds clear and equal bilaterally. NEUROLOGICAL: Alert and oriented, no focal deficits, no motor or sensory deficits. SKIN: Skin normal color for race, warm, dry and intact. No evidence of trauma. PSYCHIATRIC: Alert and oriented to person, place, time/situation. normal mood and affect. No apparent risk to self or others. CRITICAL CARE VITAL SIGNS: T PRBP SpO2O2(LPM) %FiO2 Method 10-Oct-2022 09:10:[id number]/54 96 MDM MDM/ED COURSE: Discussed Findings with: patient Data Reviewed: vital signs Awaiting: lab results Treatment Plan: Rx Zpak. Swab obtained for strep testing. Advised pt to change toothbrush after 3 days of antibiotics, use warm salt water gargles, otc analgesics, push by mouth fluids and rest. Patient's clinical presentation is otherwise unremarkable at this time. Patient is discharged with instructions to follow-up with primary care or seek emergency medical attention for worsening symptoms or any new concerns. DISPOSITION Diagnosis/Annotation: ED Dx Name:Acute pharyngitis Code:J02.9 Disposition: discharged Type: home CONSULT CRITICAL CARE TIME Is this a critically ill patient: no Electronic Signatures: Robert Elmore (WIRE BRUSHER-INSPECTOR [employer]) (Signed 10-Oct-2022 09:27) Authored: ED Notes, HPI, PMH, ROS, PE, Results/Vital Signs, MDM/ED Course, Clinical Impression, Attestation, Chart Review, Scores Last Updated: 10-Oct-2022 09:27 by Robert Elmore (WIRE BRUSHER[employer]) Normal [facility] Provider Note - ED v3 This report has been cancelled. Normal [facility] Office Visit (Primary Care T xt/Forms)on 03-05-2022 Follow-up visit Diagnoses/Problems Health Maintenance/Risks Encounter for preventive health examination (V70.0) (Z00.00) Orders SocHx: Never chewed tobacco Tobacco Use Screening; Status:Complete; Done: [id number] SocHx: Non-smoker Tobacco Use Screening; Status:Complete; Done: [id number] Patient Discussion/Summary Report lab to office when available, appointment in 2 to 3 years for health maintenance given age family history and profile Chief Complaint WELLNESS History of Present Illness Since the last office visit there have been no interval operations, hospitalizations, important illnesses or injuries. had lasik both eyes in 2017 and vas in 2021 had covid in may 02, still smell off a little tob-0 alc-<2 occ , illicits, father a htn cad mom ahtn 7sibs aw meds-0 takes asa on wifes advice. had labs at [facility] bmi is 32 and has lsot 15# to 282. Review of Systems General-no fatigue weight to within 10 pounds ENT no problems with vision swallowing Cardiac no chest pains palpitations change in exercise tolerance or capacity Pulmonary no cough shortness of breath GI no heartburn or abdominal pain Musculoskeletal no joint pains Surgical History Problems History of Eye surgery History of Vasectomy Family History Mother Family history of hypertension (V17.49) (Z82.49) Father Family history of cardiac disorder (V17.49) (Z82.49) Family history of hypertension (V17.49) (Z82.49) Child Family history of cardiac disorder (V17.49) (Z82.49) Family history of hypertension (V17.49) (Z82.49) Paternal Grandfather Family history of cardiac disorder (V17.49) (Z82.49) Family history of hypertension (V17.49) (Z82.49) Social History Problems Consumes alcohol (V49.89) (Z72.89) Does not use illicit drugs (V49.89) (Z78.9) Never chewed tobacco (V49.89) (Z78.9) No advance directives (V49.89) (Z78.9) Non-smoker (V49.89) (Z78.9) Current Meds Medication NameInstruction Aspirin 81 MG Oral Tablet Delayed ReleaseTAKE 1 TABLET DAILY DIRECTED. Allergies Medication No Known Drug Allergies Vitals Vital Signs Recorded: [id number] 03:55PM Heart Rate: 85 Systolic: 128 Diastolic: 86 Height: 6 ft 4 in Weight: 282 lb 4 oz BMI Calculated: 34.36 kg/m2 BSA Calculated: 2.56 Tobacco Use: b) No PHQ-2 #1. Over the last 2 weeks have you felt down, depressed or hopeless? (If yes, answer PHQ-9 below): No PHQ-2 #2. Over the last 2 weeks have you felt little interest or pleasure in doing things? (If yes, answer PHQ-9 below): No Falls Screening (Age 18+): a) No falls within the last year O2 Saturation: 98 Physical Exam General: Alert, No acute distress. Appears stated age Eye: Pupils are equal, round and reactive to light, Extraocular movements are intact, Normal conjunctiva. Neck: Supple, Non-tender, No carotid bruit, No jugular venous distention, No lymphadenopathy, No thyromegaly. Respiratory: Lungs are clear to auscultation, Respirations are non-labored, Breath sounds are equal. Cardiovascular: Normal rate, Regular rhythm, No murmur. Gastrointestinal: Soft, Non-tender, No organomegaly. No solid or pulsatile mass Integumentary: Warm, Dry. No concerning lesions on exposed areas Neurologic: Alert, Oriented. Gross and fine motor intact, CN 2-12 intact Psychiatric: Cooperative, Appropriate mood AND affect. Results/Data Patient reports that all of his labs at work were all green checked. He will provide copy. Fax given. Signatures Electronically signed by : Lilia Rueda MD; Mar 05 2022 4:43PM EST (Author) Electronically signed by : Lilia Rueda MD; Mar 05 2022 4:44PM EST (Author) Normal [facility] CNOVon 04-03-2018 CNOV Office Visit ([facility]) -DAJUAN GOMEZ ([id number]) 1990 MDate Time Provider Department04/03/18 4:30 PM KAREN AZEVEDO ([facility] During your visit today, we recorded the following information about you: Temperature Pulse Respiration Blood pressure 97.8 degrees 76/minute 16/minute 138/82 Weight 137 kgKaren Azevedo APRN.CNP 04/03/2018 7:22 PM SignedSubjectiveHPI Dajuan Morley Jason is a 27 year old male who presents today for CC of sorethroat, right ear pain. This started 2 days ago. Has tried nothing. Symptomsare worsened by nothing. Risk factors, sick exposures at work. Nonsmoker..Patient presents with:Sore Throat: x 2 sore throatEar Pain: Today right ear painNo past medical history on file.PAST SURGICAL HISTORYProcedure Laterality Date- PAST SURGICAL HISTORY OF 09/2009 dental extractions- PAST SURGICAL HISTORY OF 2005 left shoulder a/s SLAP repairALLERGIES Patient has no known allergies.MEDICATIONSLEVALBUT KD 0.31 MG/3 ML NEB SOLUTION patient unsure of mg use as neededmethylphenidate hcl(CONCERTA 27 MG 24 HR TAB) Take one(1) tablet daily.No family history on file.Social HistorySubstance Use Topics- Smoking status: Never Smoker- Smokeless tobacco: Never Used- Alcohol use Yes Comment: 4-5 drinks/every other weekReview of SystemsConstitutional: Negative for chills, fever and weight loss.HENT: Positive for congestion and sore throat. Negative for ear pain andnosebleeds.Respiratory: Positive for cough. Negative for shortness of breath and wheezing.Musculoskeletal: Negative for neck pain.ObjectiveBlood pressure 138/82, pulse 76, temperature 36.6 ?C (97.8 ?F), resp. rate 16,weight (!) 137 kg (302 lb).Physical ExamConstitutional: He is oriented to person, place, and time and well-developed,well-nourished , and in no distress. Non-toxic appearance. He does not have asickly appearance. No distress.HENT:Head: Normocephalic and atraumatic.Right Ear: Hearing, external ear and ear canal normal. Tympanic membrane iserythematous (mild) and bulging (mild). Tympanic membrane is not perforated.Left Ear: Hearing, tympanic membrane, external ear and ear canal normal.Nose: Nose normal.Mouth/Throat: Uvula is midline and mucous membranes are normal. Oropharyngealexudate and posterior oropharyngeal erythema present. No posteriororopharyngeal edema or tonsillar abscesses.Eyes: Pupils are equal, round, and reactive to light. Conjunctivae and lids arenormal. Right eye exhibits no discharge. Left eye exhibits no discharge. Noscleral icterus.Neck: Trachea normal and normal range of motion. Neck supple.Cardiovascular: Normal rate, regular rhythm and normal heart sounds.Pulmonary/Chest: Effort normal and breath sounds normal.Lymphadenopathy: He has cervical adenopathy. Right cervical: Superficial cervical adenopathy present. Left cervical: Superficial cervical adenopathy present.Neurological: He is alert and oriented to person, place, and time.Skin: No rash noted. He is not diaphoretic. ASSESSMENT/PLAN:1. Acute otitis media, right - ICD9: 382.9, ICD10: H66.91 (primary diagnosis)-mild infection-cefdinir d/t current pharyngitis, concerns for strep vs viral/mono.-hold atb for 2-3 days, if worsening symptoms fill/take.- Supportive care with plenty of fluids, rest, and analgesia prn.- Follow up in 3-5 days if symptoms persist or worsen.- CEFDINIR 300 MG CAPSULE2. Sore throat - ICD9: 462, ICD10: J02.9- suspect viral- Rapid Strep negative in the office today and Throat culture pending- Discussed supportive care treatment with fluids, rest and analgesia.- The patient should follow up in 3-5 days if symptoms persist or worsen- Call back if drooling, increased temperature, symptoms of dehydration and/orstill sick in one week- RAPID STREP TEST B/O- GROUP A STREPTOCOCCUS BY PCRPrescription instructions reviewed with patient as applicable. Patient advisedif symptoms do not improve or if symptoms worsen sooner, to contact the officefor further evaluation by their primary care physician. Potential red flagsymptoms discussed with the patient. Reviewed appropriate action plan to takeif red flag symptoms occur. Patient agreeable to treatment plan.Karen Azevedo APRN.Philippe Azevedo APRN.CNP 04/03/2018 5:04 PM SignedOtitis media is an infection of the middle ear. The middle ear sits behind theeardrum. This infection may be caused by a virus or bacteria and often followsa cold.Otitis media is not contagious.INSTRUCTIONS:1. If an antibiotic has been prescribed,it should be taken exactly asprescribed. Do not stop the medicine even if the symptoms go away.2. Takm-jbf-yxaojjg pain medication may be taken or other pain medication asprescribed by the doctor.3. Nothing should be placed in the ear unless instructed by your doctor.4. The patient may return to school or work when the temperature is normal(98.6 F or 37 C).5. The patient should not swim while the ear is infected.CALL YOUR PRIMARY CARE PROVIDERS OFFICE--If you do not feel better within 48-72 hours.-If you develop a temperature over 102 F (39 C).-If you develop drainage from the affected ear.-If you have any new problem that may be related to the medicine prescribed.Referring Provider: SELF [200]Allergies As of Date: 04/03/2018(No Known Allergies)Date Reviewed: 04/03/2018Reviewed by: Karen Weinberg) King Allie LambertRerandy for Visit: Sore Throat [200] Cmt: x 2 sore throat Ear Pain [817] Cmt: Today right ear painPrimary Visit Diagnosis:Acute otitis media, right [H66.91] Other Visit Diagnosis:Sore throat [J02.9]Order(s):RAPID STREP TEST B/O [7087702] Order #: [id number] GROUP A STREPTOCOCCUS BY PCR [SQGASPCR] Order #: [id number] cefdinir (OMNICEF) 300 mg capsuleTake 1 capsule by mouth twice daily for 10 days.Disp: 20 capsuleRfl: 0Prescriptions as of 04/03/2018 Sig: CEFDINIR 300 MG CAPSULE Take 1 capsule by mouth twice* * LEVALBUTEROL 0.31 MG/3 ML DOMO* patient unsure of mg use as n* * CONCERTA 27 MG TABLET,EXTENDE* Take one(1) tablet daily.Problem List As Of Date 04/03/2018 Noted Resolved TACHYCARDIA NOS [R00.0] INVALID FOR* exercise induced asthma [J45.909] INVALID FOR* TOURETTE?S DISORDER [F95.2] INVALID FOR* Other instructions from your clinician: Otitis media is an infection of the middle ear. The middle ear sits behind the eardrum. This infection may be caused by a virus or bacteria and often follows a cold. Otitis media is not contagious. INSTRUCTIONS: 1. If an antibiotic has been prescribed,it should be taken exactly as prescribed. Do not stop the medicine even if the symptoms go away. 2. Vghx-kic-xnvwbkx pain medication may be taken or other pain medication as prescribed by the doctor. 3. Nothing should be placed in the ear unless instructed by your doctor. 4. The patient may return to school or work when the temperature is normal (98.6 F or 37 C). 5. The patient should not swim while the ear is infected. CALL YOUR PRIMARY CARE PROVIDERS OFFICE- -If you do not feel better within 48-72 hours. -If you develop a temperature over 102 F (39 C). -If you develop drainage from the affected ear. -If you have any new problem that may be related to the medicine prescribed.Prescriptions ordered this encounter Disp Refills Start End CEFDINIR 300 MG CAPSULE 20 c* 0 04/03/2018 04/13/2018 Class: Print RX Route: ORAL Sig: Take 1 capsule by mouth twice daily for 10 days. Status:Closed by KAREN AZEVEDO CNP on 04/03/18 Normal [facility] Group A Strep by PCRon 04-03 GAS Specimen Source Throat Swab Normal [facility] Comment on above: Performed By: #### G ASPCR ####[facility] [address] [place], [place] [phone] Group A Strep PCR Negative Normal [facility] Comment on above: Result Comment: This test was developed and its performance characteristics determined by [facility]'s [facility] [place] ([facility]).It has not been cleared or approved by the FDA. [facility] is regulated under CLIA as qualified to perform high-complexity testing. This test is used for clinical purposes. It should not be regarded as investigational or for research. Performed By: #### G ASPCR ####[facility] [address] [place], [place] [phone] PROGRESSon 04-03-2018 Protein mass conc HNO ID: [id number] thor: Karen (John) Quirino: (none)Author Type: Nurse PractitionerType: Progress NotesFiled: 04/03/2018 7:22 PMNote Text:SubjectiveHPI Dajuan Gomez is a 27 year old male who presents today for CC ofsore throat, right ear pain. This started 2 days ago. Has tried nothing.Symptoms are worsened by nothing. Risk factors, sick exposures at work.Nonsmoker..Patient presents with:Sore Throat: x 2 sore throatEar Pain: Today right ear painNo past medical history on file.PAST SURGICAL HISTORYProcedure Laterality Date- PAST SURGICAL HISTORY OF 09/2009 dental extractions- PAST SURGICAL HISTORY OF 2005 left shoulder a/s SLAP repairALLERGIES Patient has no known allergies.MEDICATIONSLEVALBUT KD 0.31 MG/3 ML NEB SOLUTION patient unsure of mg use as neededmethylphenidate hcl(CONCERTA 27 MG 24 HR TAB) Take one(1) tablet daily.No family history on file.Social HistorySubstance Use Topics- Smoking status: Never Smoker- Smokeless tobacco: Never Used- Alcohol use Yes Comment: 4-5 drinks/every other weekReview of SystemsConstitutional: Negative for chills, fever and weight loss.HENT: Positive for congestion and sore throat. Negative for ear pain andnosebleeds.Respiratory: Positive for cough. Negative for shortness of breath andwheezing.Musculoskeletal: Negative for neck pain.ObjectiveBlood pressure 138/82, pulse 76, temperature 36.6 ?C (97.8 ?F), resp. rate16, weight (!) 137 kg (302 lb).Physical ExamConstitutional: He is oriented to person, place, and time andwell-developed, well-nourished, and in no distress. Non-toxic appearance.He does not have a sickly appearance. No distress.HENT:Head: Normocephalic and atraumatic.Right Ear: Hearing, external ear and ear canal normal. Tympanic membraneis erythematous (mild) and bulging (mild). Tympanic membrane is notperforated.Left Ear: Hearing, tympanic membrane, external ear and ear canal normal.Nose: Nose normal.Mouth/Throat: Uvula is midline and mucous membranes are normal.Oropharyngeal exudate and posterior oropharyngeal erythema present. Noposterior oropharyngeal edema or tonsillar abscesses.Eyes: Pupils are equal, round, and reactive to light. Conjunctivae andlids are normal. Right eye exhibits no discharge. Left eye exhibits nodischarge. No scleral icterus.Neck: Trachea normal and normal range of motion. Neck supple.Cardiovascular: Normal rate, regular rhythm and normal heart sounds.Pulmonary/Chest: Effort normal and breath sounds normal.Lymphadenopathy: He has cervical adenopathy. Right cervical: Superficial cervical adenopathy present. Left cervical: Superficial cervical adenopathy present.Neurological: He is alert and oriented to person, place, and time.Skin: No rash noted. He is not diaphoretic. ASSESSMENT/PLAN:1. Acute otitis media, right - ICD9: 382.9, ICD10: H66.91 (primarydiagnosis)-mild infection-cefdinir d/t current pharyngitis, concerns for strep vs viral/mono.-hold atb for 2-3 days, if worsening symptoms fill/take.- Supportive care with plenty of fluids, rest, and analgesia prn.- Follow up in 3-5 days if symptoms persist or worsen.- CEFDINIR 300 MG CAPSULE2. Sore throat - ICD9: 462, ICD10: J02.9- suspect viral- Rapid Strep negative in the office today and Throat culture pending- Discussed supportive care treatment with fluids, rest and analgesia.- The patient should follow up in 3-5 days if symptoms persist or worsen- Call back if drooling, increased temperature, symptoms of dehydrationand/or still sick in one week- RAPID STREP TEST B/O- GROUP A STREPTOCOCCUS BY PCRPrescription instructions reviewed with patient as applicable. Patientadvised if symptoms do not improve or if symptoms worsen sooner, tocontact the office for further evaluation by their primary care physician. Potential red flag symptoms discussed with the patient. Reviewedappropriate action plan to take if red flag symptoms occur. Patientagreeable to treatment plan.Karen Azevedo APRN.CNP Normal [facility] CNOVon 11-09-2017 CNOV Office Visit ([facility]) -DAJUAN GOMEZ ([id number]) 1990 MDate Time Provider Department11/09/17 3:15 PM IVIS GARZA (PULLMAN CLERK) [facility] During your visit today, we recorded the following information about you: Temperature Pulse Respiration Blood pressure 98.5 degrees 76/minute 16/minute 130/72 Weight 136.1 kgIvis Garza APRN.[employer]OR [employer] 11/09/2017 4:01 PM SignedSubjectiveHPIPatient presents with:Nasal Congestion: drainage x 3, sore throat, swollen glandsDenies known exposure to strepHx of [place].Glendy-seltzer otc with minimal relief.Review of SystemsConstitutional: Positive for malaise/fatigue. Negative for chills and fever.HENT: Positive for congestion and sore throat. Negative for ear pain. Swollen neck glandsEyes: Negative for discharge and redness.Respiratory: Negative for cough.Gastrointestinal: Negative for abdominal pain, diarrhea, nausea and vomiting.Skin: Negative for rash.Neurological: Positive for headaches.All other systems reviewed and are negative.No past medical history on file.PAST SURGICAL HISTORYProcedure Laterality Date- PAST SURGICAL HISTORY OF 09/2009 dental extractions- PAST SURGICAL HISTORY OF 2005 left shoulder a/s SLAP repairALLERGIES Review of patient's allergies indicates no known allergies.MEDICATIONSLEVALBUT KD 0.31 MG/3 ML NEB SOLUTION patient unsure of mg use as neededmethylphenidate hcl(CONCERTA 27 MG 24 HR TAB) Take one(1) tablet daily.No family history on file.Social HistorySubstance Use Topics- Smoking status: Never Smoker- Smokeless tobacco: Never Used- Alcohol use Yes Comment: 4-5 drinks/every other weekObjectivePhysical ExamConstitutional: He is well-developed, well-nourished, and in no distress.HENT:Head: Normocephalic.Right Ear: External ear and ear canal normal. Tympanic membrane iserythematous.Left Ear: Tympanic membrane, external ear and ear canal normal.Nose: Nose normal. Right sinus exhibits no maxillary sinus tenderness and nofrontal sinus tenderness. Left sinus exhibits no maxillary sinus tenderness andno frontal sinus tenderness.Mouth/Throat: Oropharynx is clear and moist.Eyes: Conjunctivae are normal.Neck: Normal range of motion.Cardiovascular: Normal rate, regular rhythm and normal heart sounds.Pulmonary/Chest: Effort normal and breath sounds normal. No respiratorydistress. He has no wheezes.Abdominal: Soft.Lymphadenopathy: Head (right side): Tonsillar adenopathy present. Head (left side): Tonsillar adenopathy present.Skin: Skin is warm and dry. No rash noted.Nursing note and vitals reviewed.ASSESSMENT/PLAN:1. Sore throat - ICD9: 462, ICD10: J02.9- suspect strep- Rapid Strep negative in the office today and Throat culture pending- Amoxicillin for 10 days.- Discussed supportive care treatment with fluids, rest and analgesia.- The patient may also use warm salt water gargles, throat lozenges and/or OTCthroat spray as needed.- Contagious dz precautions discussed- including considered contagious untilon antibiotics for 24 hours- The patient should follow up in 3-5 days if symptoms persist or worsen- Call back if drooling, increased temperature, symptoms of dehydration and/orstill sick in one week- GROUP A STREPTOCOCCUS BY PCR- RAPID STREP TEST B/OPrescription instructions reviewed with patient as applicable. Patient advisedif symptoms do not improve or if symptoms worsen sooner, to [facility]. Potential red flag symptoms discussed with thepatient. Reviewed appropriate action plan to take if red flag symptoms occur.Patient agreeable to treatment plan.Ivis Garza APRN.Michael Garza APRN.CNP 11/09/2017 3:33 PM SignedWhat is strep throat?Strep throat is an infection caused by a specific type of bacteria,Streptococcus. When your child has a strep throat, the tonsils are usually veryinflamed, and the inflammation may affect the surrounding part of the throat aswell.SymptomsStrep throat is caused by a bacterium called Streptococcus pyogenes. To someextent, the symptoms of strep throat depend on the child?s age.- Infants with strep infections may have only a low fever and a thickened orbloody nasaldischarge.- Toddlers (ages one to three) also may have a thickened or bloody nasaldischarge with a fever. Such children are usually quite cranky, have noappetite, and often have swollen glands in the neck. Sometimes toddlers willcomplain of tummy pain instead of a sore throat.- Children over three years of age with strep are often more ill; they may havean extremely painful throat, fever over 102 degrees Fahrenheit (38.9 degreesCelsius), swollen glands in the neck, and pus on the tonsils.It?s important to be able to distinguish a strep throat from a viral sorethroat, because strep infections are treated with antibiotics.When to call the pediatricianIf your child has a sore throat that persists (not one that goes away after herfirst drink in the morning), whether or not it is accompanied by fever,headache, stomachache, or extreme fatigue, you should call your master naval parachutist.That call should be made even more urgently if your child seems extremely ill,or if she has difficulty breathing or extreme trouble swallowing (causing herto drool). This may indicate a more serious infection.TreatmentIf the strep test shows that your child does have strep throat, yourpediatrician will prescribe an antibiotic to be taken by mouth or by injection.If your child is given the oral medication, it?s very important that she takeit for the full course, as prescribed, even if the symptoms get better or goaway.If a child?s strep throat is not treated with antibiotics, or if she doesn?tcomplete the treatment, the infection may worsen or spread to other parts ofher body, leading to conditions such as abscesses of the tonsils or kidneyproblems. Untreated strepinfections also can lead to rheumatic fever, a disease that affects the heart.However, rheumatic fever is rare in the [place] and in children underfive years old.PreventionMost types of throat infections are contagious, being passed primarily throughthe air on droplets of moisture or on the hands of infected children or adults.For that reason, it makes sense to keep your child away from people who havesymptoms of thiscondition. However, most people are contagious before their first symptomsappear, so often there?s really no practical way to prevent your child fromcontracting the disease.In the past when a child had several sore throats, her tonsils might have beenremoved in an attempt to prevent further infections. But this operation, calleda tonsillectomy, is recommended today only for the most severely affectedchildren. Even in difficultcases, where there is repeated strep throat, antibiotic treatment is usuallythe best solution.Referring Provider: SELF [200]Allergies As of Date: 11/09/2017(No Known Allergies)Date Reviewed: 11/09/2017Reviewed by: Jorge Christy Ma - Fully AssessedReason for Visit: Nasal Congestion [235] Cmt: drainage x 3, sore throat, swollen glandsPrimary Visit Diagnosis:Sore throat [J02.9] Other Visit Diagnosis:Right acute serous otitis media, recurrence not specified [H65.01]Order(s):GROUP A STREPTOCOCCUS BY PCR [SQGASPCR] Order #: [id number] RAPID STREP TEST B/O [[id number]] Order #: [id number] amoxicillin (AMOXIL) 875 mg tabletTake 1 tablet by mouth twice daily for 10 days.Disp: 20 tabletRfl: 0Prescriptions as of 11/09/2017 Sig: AMOXICILLIN 875 MG TABLET Take 1 tablet by mouth twice * * LEVALBUTEROL 0.31 MG/3 ML DOMO* patient unsure of mg use as n* * CONCERTA 27 MG TABLET,EXTENDE* Take one(1) tablet daily.Medication notes this encounter LEVALBUTEROL 0.31 MG/3 ML SOLUTION FOR NEBULIZATION >> Jorge Christy Marcus 11/09/2017 3:14 PM >> JORGE CHRISTY MA Sat Nov 09, 2017 3:14 PM done CONCERTA 27 MG TABLET,EXTENDED RELEASE >> Jorge Christy Ma 11/09/2017 3:14 PM >> JORGE CHRISTY MA Sat Nov 09, 2017 3:14 PM doneProblem List As Of Date 11/09/2017 Noted Resolved TACHYCARDIA NOS [R00.0] INVALID FOR* exercise induced asthma [J45.909] INVALID FOR* TOURETTE?S DISORDER [F95.2] INVALID FOR* Other instructions from your clinician: What is strep throat? Strep throat is an infection caused by a specific type of bacteria, Streptococcus. When your child has a strep throat, the tonsils are usually very inflamed, and the inflammation may affect the surrounding part of the throat as well. Symptoms Strep throat is caused by a bacterium called Streptococcus pyogenes. To some extent, the symptoms of strep throat depend on the child?s age. - Infants with strep infections may have only a low fever and a thickened or bloody nasal discharge. - Toddlers (ages one to three) also may have a thickened or bloody nasal discharge with a fever. Such children are usually quite cranky, have no appetite, and often have swollen glands in the neck. Sometimes toddlers will complain of tummy pain instead of a sore throat. - Children over three years of age with strep are often more ill; they may have an extremely painful throat, fever over 102 degrees Fahrenheit (38.9 degrees Celsius), swollen glands in the neck, and pus on the tonsils. It?s important to be able to distinguish a strep throat from a viral sore throat, because strep infections are treated with antibiotics. When to call the master naval parachutist If your child has a sore throat that persists (not one that goes away after her first drink in the morning), whether or not it is accompanied by fever, headache, stomachache, or extreme fatigue, you should call your master naval parachutist. That call should be made even more urgently if your child seems extremely ill, or if she has difficulty breathing or extreme trouble swallowing (causing her to drool). This may indicate a more serious infection. Treatment If the strep test shows that your child does have strep throat, your master naval parachutist will prescribe an antibiotic to be taken by mouth or by injection. If your child is given the oral medication, it?s very important that she take it for the full course, as prescribed, even if the symptoms get better or go away. If a child?s strep throat is not treated with antibiotics, or if she doesn?t complete the treatment, the infection may worsen or spread to other parts of her body, leading to conditions such as abscesses of the tonsils or kidney problems. Untreated strep infections also can lead to rheumatic fever, a disease that affects the heart. However, rheumatic fever is rare in the [place] and in children under five years old. Prevention Most types of throat infections are contagious, being passed primarily through the air on droplets of moisture or on the hands of infected children or adults. For that reason, it makes sense to keep your child away from people who have symptoms of this condition. However, most people are contagious before their first symptoms appear, so often there?s really no practical way to prevent your child from brenda the disease. In the past when a child had several sore throats, her tonsils might have been removed in an attempt to prevent further infections. But this operation, called a tonsillectomy, is recommended today only for the most severely affected children. Even in difficult cases, where there is repeated strep throat, antibiotic treatment is usually the best solution.Prescriptions ordered this encounter Disp Refills Start End AMOXICILLIN 875 MG TABLET 20 t* 0 11/09/2017 11/19/2017 Route: ORAL Sig: Take 1 tablet by mouth twice daily for 10 days.Disposition: Return if symptoms worsen or fail to improve.Follow-up and Disposition History RecordedEncounter Number: [id number] Status:Closed by IVIS GARZA on 11/09/17 Normal [facility] Group A Strep by PCRon 11-09 GAS Specimen Source Throat Swab Normal [facility] Comment on above: Performed By: #### G ASPCR ####[facility] [address], [place] [phone] Group A Strep PCR Negative Normal [facility] Comment on above: Result Comment: This test was developed and its performance characteristics determined by [facility]'s Zach Hellen [facility] Pathology and Laboratory Medicine [place] ([facility]).It has not been cleared or approved by the FDA. [facility] is regulated under CLIA as qualified to perform high-complexity testing. This test is used for clinical purposes. It should not be regarded as investigational or for research. Performed By: #### G ASPCR ####[facility], [place] [phone] PROGRESSon 11-09-2017 Protein mass conc HNO ID: [id number] thor: Ivis Khalil (Powerhouse Electrician Apprentice) Radhae: (none)Author Type: Nurse PractitionerType: Progress NotesFiled: 11/09/2017 4:01 PMNote Text:SubjectiveHPIPatient presents with:Nasal Congestion: drainage x 3, sore throat, swollen glandsDenies known exposure to strepHx of Stokes.Glendy-seltzer otc with minimal relief.Review of SystemsConstitutional: Positive for malaise/fatigue. Negative for chills andfever.HENT: Positive for congestion and sore throat. Negative for ear pain. Swollen neck glandsEyes: Negative for discharge and redness.Respiratory: Negative for cough.Gastrointestinal: Negative for abdominal pain, diarrhea, nausea andvomiting.Skin: Negative for rash.Neurological: Positive for headaches.All other systems reviewed and are negative.No past medical history on file.PAST SURGICAL HISTORYProcedure Laterality Date- PAST SURGICAL HISTORY OF 09/2009 dental extractions- PAST SURGICAL HISTORY OF 2005 left shoulder a/s SLAP repairALLERGIES Review of patient's allergies indicates no known allergies.MEDICATIONSLEVALBUT KD 0.31 MG/3 ML NEB SOLUTION patient unsure of mg use as neededmethylphenidate hcl(CONCERTA 27 MG 24 HR TAB) Take one(1) tablet daily.No family history on file.Social HistorySubstance Use Topics- Smoking status: Never Smoker- Smokeless tobacco: Never Used- Alcohol use Yes Comment: 4-5 drinks/every other weekObjectivePhysical ExamConstitutional: He is well-developed, well-nourished, and in no distress.HENT:Head: Normocephalic.Right Ear: External ear and ear canal normal. Tympanic membrane iserythematous.Left Ear: Tympanic membrane, external ear and ear canal normal.Nose: Nose normal. Right sinus exhibits no maxillary sinus tenderness andno frontal sinus tenderness. Left sinus exhibits no maxillary sinustenderness and no frontal sinus tenderness.Mouth/Throat: Oropharynx is clear and moist.Eyes: Conjunctivae are normal.Neck: Normal range of motion.Cardiovascular: Normal rate, regular rhythm and normal heart sounds.Pulmonary/Chest: Effort normal and breath sounds normal. No respiratorydistress. He has no wheezes.Abdominal: Soft.Lymphadenopathy: Head (right side): Tonsillar adenopathy present. Head (left side): Tonsillar adenopathy present.Skin: Skin is warm and dry. No rash noted.Nursing note and vitals reviewed.ASSESSMENT/PLAN:1. Sore throat - ICD9: 462, ICD10: J02.9- suspect strep- Rapid Strep negative in the office today and Throat culture pending- Amoxicillin for 10 days.- Discussed supportive care treatment with fluids, rest and analgesia.- The patient may also use warm salt water gargles, throat lozengesand/or OTC throat spray as needed.- Contagious dz precautions discussed- including considered contagiousuntil on antibiotics for 24 hours- The patient should follow up in 3-5 days if symptoms persist or worsen- Call back if drooling, increased temperature, symptoms of dehydrationand/or still sick in one week- GROUP A STREPTOCOCCUS BY PCR- RAPID STREP TEST B/OPrescription instructions reviewed with patient as applicable. Patientadvised if symptoms do not improve or if symptoms worsen sooner, tocontact their primary care physician. Potential red flag symptomsdiscussed with the patient. Reviewed appropriate action plan to take ifred flag symptoms occur. Patient agreeable to treatment plan.Ivis Garza APRN.[employer] Normal [facility] Vital Signs Date Time Vital Sign Value Performing Clinician Facility 05-12-2024 08:01-0400 Body height 193 cm Lilia Rueda MD Work Phone: [facility] 05-12-2024 08:01-0400 Body mass index (BMI) [Ratio] 35.45 kg/m2 Lilia Rueda MD Work Phone: [facility] 05-12-2024 08:01-0400 Body weight 132.09 kg Lilia Rueda MD Work Phone: [facility] 05-12-2024 08:01-0400 Diastolic blood pressure 88 mm[Hg] Lilia Rueda MD Work Phone: [facility] 05-12-2024 08:01-0400 Heart rate 76 /min Lilia Rueda MD Work Phone: [facility] 05-12-2024 08:01-0400 SaO2% (BldA) [Mass fraction] 98 % Lilia Rueda MD Work Phone: [facility] 05-12-2024 08:01-0400 Systolic blood pressure 138 mm[Hg] Lilia Rueda MD Work Phone: [facility] 10-10-2022 11:10-0500 Body height 193 cm Lilia Rueda Other Phone: [facility] 10-10-2022 11:10-0500 Body temperature 98.6 [degF] Lilia Rueda Other Phone: [facility] 10-10-2022 11:10-0500 Diastolic blood pressure 54 mm[Hg] Lilia Rueda Other Phone: [facility] 10-10-2022 11:10-0500 Heart rate 102 /min Lilia Rueda Other Phone: [facility] 10-10-2022 11:10-0500 Respiratory rate 16 /min Lilia Rueda Other Phone: [facility] 10-10-2022 11:10-0500 SaO2% (BldA) [Mass fraction] 96 % Lilia Rueda Other Phone: [facility] 10-10-2022 11:10-0500 Systolic blood pressure 133 mm[Hg] Lilia Rueda Other Phone: [facility] Encounters Encounter Date Encounter Type Care Provider Facility Start: 05-12-2024 End: 05-12-2024 ambulatory LILIA RUEDA [facility] Start: 05-12-2024 End: 05-12-2024 Encounter for general adult medical examination without abnormal findings LILIA RUEDA [facility] Start: 05-12-2024 End: 05-12-2024 Patient encounter status Lilia Rueda MD Work Phone: [facility] Work Phone: Start: 05-12-2024 End: 05-12-2024 Periodic preventive med est patient 18-39 yrs Lilia Rueda MD Work Phone: [facility] Comment on above: Wellness examination (Primary Dx); Hypogonadism in male Start: 05-12-2024 End: 05-12-2024 [facility] Start: 05-12-2024 End: 05-12-2024 Encounter for general adult medical examination without abnormal findings [facility] Start: 10-10-2022 End: 10-10-2022 Emergency department patient visit [facility] Start: 03-05-2022 ambulatory MD LILIA RUEDA Facility:[id number] Start: 07-17-2018 Patient encounter procedure Lilia Rueda Facility:[facility] Start: 07-17-2018 End: 07-18-2018 Patient encounter procedure Lilia Rueda Facility:[facility] Start: 06-12-2018 End: 06-13-2018 Patient encounter procedure Lilia Rueda Facility:[facility] Start: 04-04-2018 End: 04-04-2018 Patient encounter procedure Lisa Farrell Facility:[facility] Start: 04-03-2018 End: 04-04-2018 Patient encounter [facility] Start: 11-12-2017 End: 11-13-2017 Patient encounter procedure Lilia Rueda Facility:[facility] Start: 11-09-2017 End: 11-11-2017 Patient encounter [facility] Procedures Date Procedure Procedure Detail Performing Clinician Start: 05-12-2024 Lipid 1996 panel - S isabel or Plasma Lilia Rueda MD Work Phone: Plan of Treatment Date Care Activity Detail Author Start: 2038 Zoster Vaccines (1 of 2) Zoste r Vaccines (1 of 2) [facility] Start: 05-12-2029 Lipid panel Lipid Panel [facility] Start: 05-13-2025 End: 05-13-2025 Patient encounter procedure 05/13/2025 8:00 AM EDT Office Visit [place] [address] [phone] Lilia Rueda MD [address] [address] [facility] Start: 04-12-2024 COVID-19 Vaccine ( season) COVID-19 Vaccine ( season) [facility] Start: 04-12-2024 Influenza vaccination Influenza Vacc ine (#1) [facility] Start: 2010 DTaP/Tdap/Td Vaccine s (1 - Tdap) DTaP/Tdap/Td Vaccines (1 - Tdap) [facility] Start: 2007 Hepatitis B Vaccines (1 of 3 - 19+ 3-dose series) Hepatitis B Vaccines (1 of 3 - 19+ 3-dose series) [facility] Start: 2006 Hepatitis C screening Hepatitis C [facility] Start: 2001 Varicella vaccination Varicell a Vaccines (1 of 2 - 13+ 2-dose series) [facility] Start: 1989 MMR Vaccines (1 of 1 - Standard series) MMR Vaccines (1 of 1 - Standard series) [facility] Start: 1988 HIV screening HIV Screening [facility] Start: 1988 Yearly Adult Physical Yearly Adult P hysical [facility] Payers Date Payer Category Payer Private Health Insurance [employer] [id number] 2022-Present [phone] [id number] [facility] [address] [id number] 2022 Private Health Insurance [id number] 2017 Unknown 1988 Unknown [id number]. [id number] 1988 Unknown [id number] [id number]. [id number] 1988 Unknown [id number] [id number]. [id number] 1988 Unknown [id number] [id number]. [id number] 1988 Unknown [id number] [id number]. [id number] 1988 Unknown [id number] [id number]. [id number] 1988 Unknown [id number] [id number]. [id number] 1988 Unknown [id number] [id number] [id number] 1988 Unknown [id number] [id number]. [id number] Unknown [id number] Social History Date Type Detail Facility [facility] Tobacco smoking consumption unknown [facility] Start: 05-12-2024 Tobacco smoking stat us NHIS Never smoked tobacco [facility] Work Phone: Start: 05-12-2024 Tobacco use and exposure Smokeless tobacco non-user [facility] Work Phone: Start: 05-12-2024 Alcoholic beverage intake Current drinker of alcohol (finding) [facility] Work Phone: Start: 1988 Sex assigned at Not on file [facility] Work Phone: Gender identity Not on file [facility] Work Phone: Start: 05-02-2024 End: 05-12-2024 Exposure to SARS-CoV-2 (event) Not sure [facility] History of Present illness Narrative 05-12-2024 Lilia Rueda MD - 05/12/2024 8:00 AM EDT Note Date & Type Note Facility 05-12-2024 History of Present illness Narrative Subjective Patient ID: Dajuan Gomez is a 33 y.o. male who presents for Annual Exam. HPI Parents , dad smokes and cad ~55, mom aw,7 sibs aw Tob-0, alc<2, no illicits, exercises+ 2 mo affectivedisorder with some lack of enthusiasm, decreased libido, anxiety. No apparent trigger. Discussed arbitrary distinction of exogenous and endogenous and treatment with counseling or SSRI. At this point no action other than checking labs Review of Systems General-no fatigue weight to within 10 pounds ENT no problems with vision swallowing Cardiac no chest pains palpitations change in exercise tolerance or capacity Pulmonary no cough shortness of breath GI no heartburn or abdominal pain Musculoskeletal no joint pains Objective BP 138/88 Pulse 76 Ht 1.93 m (6' 4 ) Wt 132 kg (291 lb 3.2 oz) SpO2 98% BMI 35.45 kg/m Physical Exam General: Alert, No acute distress. Appears stated age Eye: Pupils are equal, round and reactive to light, Extraocular movements are intact, Normal conjunctiva. Neck: Supple, Non-tender, No carotid bruit, No jugular venous distention, No lymphadenopathy, No thyromegaly. Respiratory: Lungs are clear to auscultation, Respirations are non-labored, Breath sounds are equal. Cardiovascular: Normal rate, Regular rhythm, No murmur. Gastrointestinal: Soft, Non-tender, No organomegaly. No solid or pulsatile mass Integumentary: Warm, Dry. No concerning lesions on exposed areas Neurologic: Alert, Oriented. Gross and fine motor intact, CN 2-12 intact Psychiatric: Cooperative, Appropriate mood & affect. Assessment/Plan Problem List Items Addressed This Visit None Visit Diagnoses Codes Wellness examination - Primary Z00.00 Relevant Orders CBC (Completed) Comprehensive Metabolic Panel (Completed) Thyroid Stimulating Hormone (Completed) Testosterone (Completed) Lipid Panel (Completed) Referred to Bill for hypogonadism documented in this encounter [facility] Work Phone: Evaluation note Note Date & Type Note Facility Evaluation note Diagnosis Wellness examination- Primary Hypogonadism in male documented in this encounter [facility] Work Phone: Reason for referral (narrative) Consultation (Routine) - Authorized Note Date & Type Note Facility Reason for referral (narrati ve) Specialty Diagnoses / Procedures Referred By Darwin drake Referred To Contact Urology Diagnoses Hypogonadism in male Lilia Rueda MD [address] [place] [address] Raad Khan MD [address] [place] [address] Referral ID Status Reason Start Date Expiration Date Visits Requested Visits Authorized [id number] Authorized Specialty Services Required 05/12/2024 05/12/2025 1 1 [facility] Work Phone: Summary Purpose Family History No Family History Records FoundNo Family History Records FoundNo Family History Records FoundNo Family History Records FoundNo Family History Records FoundNo Family History Records FoundNo Family History Records Found Advance Directives No Advanced Directives Records FoundNo Advanced Directives Records FoundNo Advanced Directives Records FoundNo Advanced Directives Records FoundNo Advanced Directives Records FoundNo Advanced Directives Records FoundNo Advanced Directives Records Found Additional Source Comments (unrecognized sect ion and content) No Status Records FoundNo Status Records FoundNo Status Records FoundNo Status Records FoundNo Status Records FoundNo Status Records FoundNo Status Records Found INFORMATION SOURCE (unrecogn ized section and content) DATE CREATED AUTHOR 04/07/2018 [facility] DATE CREATED AUTHOR AUTHOR'S ORGANIZ ATAGUSTIN 07/20/2018 [facility] DATE CREATED AUTHOR AUTHOR'S ORGANIZ ATION 03/06/2022 [employer] DATE CREATED AUTHOR AUTHOR'S ORGANIZ ATION 10/12/2022 [facility] DATE CREATED AUTHOR AUTHOR'S ORGANIZ ATION 10/13/2022 [facility] DATE CREATED AUTHOR AUTHOR'S ORGANIZ ATION 05/13/2024 [facility] DATE CREATED AUTHOR AUTHOR'S ORGANIZ ATION 05/17/2024 [facility] <item> Privacy Markings (unrecogniz ed section and content) Section Author: Barb Anna PROHIBITION ON REDISCLOSURE OF CONFIDENTIAL INFORMATION This notice accompanies a disclosure of information concerning a client made to you with the consent of such client. Reason for Visit (unrecogniz ed section and content) Reason Comments Annual Exam Care Teams (unrecognized sec tion and content) Highballer Relationship Specialty Start Date End Date Lilia Rueda MD [address] [place] [address] PCP - General Family Medicine 04/23/24 FOR RECORDS PERTAINING TO PATIENTS WHO ARE OR HAVE BEEN ENROLLED IN A CHEMICAL DEPENDENCY/SUBSTANCEABUSE PROGRAM, SOME INFORMATION MAY BE OMITTED. This clinical summary was aggregated from multiple sources. Caution should be exercised in using it in the provision of clinical care. This summary normalizes information from multiple sources, and as a consequence, information in this document may materially change the coding, format and clinical context of patient data. In addition, data may be omitted in some cases. CLINICAL DECISIONS SHOULD BE BASED ON THE PRIMARY CLINICAL RECORDS. [employer] provides no warranty or guarantee of the accuracy or completeness of information in this document.
[2024-06-10 08:13] LABS: PROLACTIN 9.6 ng/mL (3.9-22.7)
== END | disposition home or self-care (01) ==
PROVIDERS: PCP Family Medicine; Referring Provider Urology; Visit Provider Urology
DX: E29.1 Testicular hypofunction (principal)
CPT/HCPCS: 83001; 83002; 84146; 84403